=== PATIENT | female | born 2000 | race Caucasian/White ===

== ENCOUNTER 2020-09-07 06:52 | Outpatient (NON) | payer OTHER, SELFPAY ==
[2020-09-08 02:00] LABS: SARS-CoV-2 RNA PCR Positive
== END 2020-09-07 06:53 ==
PROVIDERS: PCP Family Medicine; Visit Provider Family Medicine
DX: U07.1 COVID-19 (principal)
CPT/HCPCS: 87635; C9803; U0003

== ENCOUNTER 2022-06-27 15:09 | Outpatient (CLI) | payer OTHER, SELFPAY ==
[2022-06-27 18:50] LABS: Basophils Percent Auto 0.5 % (0.2-1.2); Eosinophils Absolute Auto 0.1 K/mm3 (0-0.3); Eosinophils Percent Auto 0.8 % (0-4.4); Hematocrit 37.6 % (37.0-47.0); Hemoglobin 12.5 g/dL (12.0-15.0); Immature Granulocyte Absolute 0.02 K/mm3 (0.00-0.031); Immature Granulocyte Percent A 0.3 % (0-0.5); Lymphocytes Absolute Auto 2.81 K/mm3 (0.9-3.2); Lymphocytes Percent Auto 37.8 % (18.3-44.2); Mean Corpuscular HGB Conc 33.2 g/dl (32-36); Mean Corpuscular Hemoglobin 29.6 pg (26-34); Mean Corpuscular Volume 88.9 fl (80-100); Mean Platelet Volume 11.1 fl (7.4-10.4); Monocytes Absolute Auto 0.6 K/mm3 (0.1-0.6); Monocytes Percent Auto 7.8 % (2.6-8.5); Neutrophils Absolute Auto 3.9 K/mm3 (1.3-6.7); Neutrophils Percent Auto 52.8 % (45.5-73.1); Platelet Count Result 251 k/mm3 (150-375); Red Blood Count 4.23 M/mm3 (4.2-5.4); Red Cell Distribution Width 11.8 % (11.5-14.5); White Blood Count 7.4 K/mm3 (4.5-10.0)
[2022-06-27 19:14] LABS: Alanine Aminotransferase 26 U/L (6-35); Albumin Level 4.3 g/dL (3.5-5.1); Alkaline Phosphatase 42 U/L (38-126); Anion Gap 8 mmol/L (8-16); Aspartate Amino Transferase 36 U/L (14-36); Bilirubin,Total 0.8 mg/dL (0.2-1.3); Blood Urea Nitrogen 8 mg/dL (7-17); Calcium 9.4 mg/dL (8.4-10.2); Carbon Dioxide 25 mmol/L (22-30); Chloride 104 mmol/L (98-107); Estimated Glomerular Filt Rate > 60; Glucose 93 mg/dL (65-110); Potassium 4.1 mmol/L (3.4-5.0); Sodium 137 mmol/L (137-145)
[2022-06-27 19:16] LABS: Erythrocyte Sedimentation Rate 11 mm/hr (0-20)
[2022-06-27 20:34] LABS: Vitamin D 25 Hydroxy 60.5 ng/mL
== END 2022-06-27 15:10 | disposition home or self-care (01) ==
LOC: ANHGOSHLAB 15:10
PROVIDERS: PCP Family Medicine; Visit Provider Nurse Practitioner
DX: R53.83 Other fatigue (principal); Z13.6 Encounter for screening for cardiovascular disorders; E55.9 Vitamin D deficiency, unspecified; E53.8 Deficiency of other specified B group vitamins; M25.50 Pain in unspecified joint
CPT/HCPCS: 36415; 80053; 82306; 82607; 84443; 85025; 85652; 86038

== ENCOUNTER 2022-07-06 10:03 | Outpatient (CLI) | payer OTHER, SELFPAY ==
[2022-07-06 21:09] LABS: Rheumatoid Factor < 8.6 IU/ML (<12)
== END 2022-07-06 10:04 | disposition home or self-care (01) ==
LOC: ANHGOSHLAB 10:04
PROVIDERS: PCP Family Medicine; Visit Provider Nurse Practitioner
DX: M25.50 Pain in unspecified joint (principal)
CPT/HCPCS: 36415; 86430

== ENCOUNTER → 2023-08-01 08:32 | Outpatient (CLI) | payer OTHER, SELFPAY ==
--- NOTE | ~2023-08-01 | XR_ITS ---
XR_RIBSBI_CR DATE: 08/01/2023 08:44 INDICATION: Bilateral rib pain TECHNIQUE: 3 views of right ribs 3 views of left ribs COMPARISON: None FINDINGS: No fracture or bone destruction of the left or right ribs. Mild thoracic scoliosis. The lungs are normally inflated and clear of infiltrate or consolidation. No pleural effusion or pulm onary vascular congestion or pneumothorax. Normal heart size. No hilar or mediastinal enlargement is detected. IMPRESSION: Negative bilateral ribs Reviewed, dictated and finalized at [facility]. Reviewed, dictated and finalized at [facility]. IMPRESSION: Negative bilateral ribs
== END ==
PROVIDERS: PCP Nurse Practitioner Family; Visit Provider Nurse Practitioner Family
DX: R07.81 Pleurodynia (principal)
CPT/HCPCS: 71110

== ENCOUNTER 2024-02-20 11:21 | Outpatient (CLI) | payer OTHER, SELFPAY ==
[2024-02-20 20:55] LABS: Basophils Percent Auto 0.6 % (0.2-1.2); Eosinophils Absolute Auto 0.1 K/mm3 (0-0.3); Eosinophils Percent Auto 1.4 % (0-4.4); Hematocrit 38.8 % (37.0-47.0); Hemoglobin 12.8 g/dL (12.0-15.0); Immature Granulocyte Absolute 0.01 K/mm3 (0.00-0.031); Immature Granulocyte Percent A 0.2 % (0-0.5); Lymphocytes Absolute Auto 2.51 K/mm3 (0.9-3.2); Lymphocytes Percent Auto 37.9 % (18.3-44.2); Mean Corpuscular Hemoglobin 29.3 pg (26-34); Mean Corpuscular Volume 88.8 fl (80-100); Mean Platelet Volume 11.5 fl (7.4-10.4); Monocytes Absolute Auto 0.6 K/mm3 (0.1-0.6); Neutrophils Absolute Auto 3.4 K/mm3 (1.3-6.7); Neutrophils Percent Auto 50.9 % (45.5-73.1); Platelet Count Result 220 k/mm3 (150-375); Red Blood Count 4.37 M/mm3 (4.2-5.4); Red Cell Distribution Width 11.7 % (11.5-14.5); White Blood Count 6.6 K/mm3 (4.5-10.0)
[2024-02-20 21:09] LABS: Alanine Aminotransferase 23 U/L (6-35); Albumin Level 4.2 g/dL (3.5-5.1); Alkaline Phosphatase 41 U/L (38-126); Anion Gap 5 mmol/L (4-12); Aspartate Amino Transferase 32 U/L (14-36); Bilirubin,Total 0.8 mg/dL (0.2-1.3); Blood Urea Nitrogen 4 mg/dL (7-17); Calcium 9.4 mg/dL (8.4-10.2); Carbon Dioxide 25 mmol/L (22-30); Chloride 108 mmol/L (98-107); Estimated Glomerular Filt Rate > 60; Glucose 86 mg/dL (65-110); Potassium 4.2 mmol/L (3.4-5.0); Sodium 138 mmol/L (137-145)
[2024-02-20 21:19] LABS: Free T4 Free Thyroxine 1.27 ng/mL (0.78-2.19)
== END 2024-02-20 11:22 | disposition home or self-care (01) ==
LOC: ANHGOSHLAB 11:22
PROVIDERS: PCP Family Medicine; Visit Provider Nurse Practitioner Family
DX: E04.1 Nontoxic single thyroid nodule (principal); R59.9 Enlarged lymph nodes, unspecified; E03.9 Hypothyroidism, unspecified; Z00.00 Encounter for general adult medical examination without abnormal findings; R53.83 Other fatigue; M25.50 Pain in unspecified joint
CPT/HCPCS: 36415; 80053; 84439; 84443; 85025

== ENCOUNTER 2024-02-29 09:54 | Outpatient (CLI) | payer OTHER, SELFPAY | END 2024-02-29 09:55 | disposition home or self-care (01) | LOC: ANHGOSHLAB 09:56 | PROVIDERS: PCP Family Medicine; Visit Provider Nurse Practitioner Family | DX: M25.50 Pain in unspecified joint (principal); R59.9 Enlarged lymph nodes, unspecified; R53.83 Other fatigue | CPT/HCPCS: 36415; 86038 ==

== ENCOUNTER 2024-12-09 08:26 | Emergency (ER) | payer OTHER, SELFPAY ==
[2024-12-09 08:35] VITALS: BP 146/70; PULSE 115; RESP 16; TEMP 36.3; O2SAT 100
--- OUTSIDE RECORDS SUMMARY | 2024-12-09 08:41 | XMS_ITS | Clinical Summary ---
Author Organization [facility] Address [address] [place] [address] Phone Care Team Providers Care Group Leader [employer] Processing Name Role Phone Mahin Okeefe MD Primary Care Provider [phone] Allergies No known active allergies Medications ondansetron (ZOFRAN) 4 MG Tablet Take 1 Tab by mouth every 8 hours as needed for Nausea for up to 10 doses. 10 Tab 06/28/2017 Active Social History Tobacco Use Types Packs/Day Years Used Date Smoking Tobacco: Never Comments No Sex and Gender Information Value Date Recorded Sex Assigned at Not on file Legal Sex Female 10:24 PM CDT Gender Identity Not on file Sexual Orientation Not on file Last Filed Vital Signs Vital Sign Reading Time Taken Comments Blood Pressure 111/49 06/28/2017 3:49 PM CDT Pulse 68 06/28/2017 3:49 PM CDT Temperature 36.7 C (98.1 F) 06/28/2017 10:41 AM CDT Respiratory Rate 18 06/28/2017 10:41 AM CDT Oxygen Saturation 99% 06/28/2017 10:41 AM CDT Inhaled Oxygen Concentration - - Weight 65.8 kg (145 lb) 06/28/2017 10:41 AM CDT Height 170.2 cm (5' 7 ) 06/28/2017 10:41 AM CDT Body Mass Index 22.71 06/28/2017 10:41 AM CDT Plan of Treatment Health Maintenance Due Date Last Done Comments Hepatitis C Virus (HCV) Screening 2000 TdaP Immunization 2000 Human Papillomavirus (HPV) Immunization (1 - 3-dose series) 2015 Hepatitis B Immunization (1 of 3 - 19+ 3-dose series) 2019 Pap Smear 2021 Influenza Immunization (#1) 2024 SARS-COV-2 Immunization (2023-25 season) 2024 Respiratory Syncytial Virus (RSV) Immunization (Adult) (1 - 1-dose 75+ series) 2075 Meningococcal Immunization (ACWY) Aged Out No longer eligible based on patient's age to complete this topic Pneumococcal Immunization Combined Aged Out No longer eligible based on patient's age to complete this topic Rotavirus Immunization Aged Out No lo nger eligible based on patient's age to complete this topic Care Teams Group Leader [employer]icon[employer] Processing Relationship Specialty Start Date End Date Mahin Okeefe MD [address] [place] [address] PCP - General Family Medicine 06/28/17
--- NOTE | 2024-12-09 08:50 | ED_ITS ---
HPI - General Adult General Chief complaint: Upper Respiratory Infection Stated complaint: Fever/Chills/Body Aches Source: patient Mode of arrival: ambulatory Limitations: no limitations History of Present Illness HPI narrative: Patient presents for evaluation of sick symptoms since yesterday. Symptoms include fever, chills, generalized body aches, nausea and vomiting. Denies cough, shortness of breath and diarrhea. No recent sick contacts to her knowledge. She does not smoke. She is also concerned about urinary symptoms that started today. Symptoms include dysuria and urinary frequency. She also has some suprapubic discomfort and low back pain. She is concerned she has a UTI. Related Data Home Medications ?Medication ?Instructions ?Recorded ?Confirmed ?Last Taken ?Type drospirenone 3 mg-ethinyl 0.02 tablet PO DAILY 08/24/19 08/01/23 08/24/19 History estradiol 0.02 mg tablet (Brennenvi (28)) diclofenac sodium 75 mg mg PO PRN 02/20/24 Unknown History tablet,delayed release Allergies Allergy/AdvReac Type Severity Reaction Status Date / Time No Known Allergies Allergy Verified 02/20/24 10:50 Review of Systems Review of Systems: CONSTITUTIONAL:Reports fever and chills EYES: Denies visual changes, redness, or discharge. ENT: Denies rhinorrhea, congestion, sore throat, or otalgia. CARDIOVASCULAR: Denies chest pain, palpitations, or edema. RESPIRATORY: Denies cough or dyspnea. GASTROINTESTINAL:Reports nausea and vomiting. Denies abdominal pain and diarrhea. GENITOURINARY: Reports dysuria and urinary frequency.. BACK: Reports bilateral low back pain SKIN: Denies rash or itching. MUSCULOSKELETAL: Reports generalized body aches NEUROLOGIC: Denies headache, numbness, dizziness, or weakness. PSYCHIATRIC: Denies anxiety or depression. 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 GERD (gastroesophageal reflux disease) Surgical History Surgical History No pertinent past surgical history Family History Family History Grandparent Heart attack Other Family history of Parkinson's disease Family history of malignant neoplasm of male breast Social History Social History Smoking status: Never smoker Alcohol intake: current Alcohol use details: Socially Substance use: never Substance use type: does not use Lack of Transportation: No Lack of Food: Never True Current Housing: I Have Housing Concerned About Future Housing: No Difficulty Paying Gas/Electric Bills: No Difficulty Paying for Meds: No Currently Unemployed: No Education: Associate Degree Difficulty w/ Childcare or Family Care: No Living arrangements: with family Occupation/Education: occupation Gender identity (if verbalized by the patient): Female Agree to blood products: Yes Exam Narrative: GENERAL: Well-appearing, well-nourished, and in no acute distress. HEAD: Normocephalic, atraumatic. EYES: PERRLA and EOMI. ENT: Nares clear, no rhinorrhea or epistaxis. Mucous membranes moist. Oropharynx without tonsillar hypertrophy exudate or other lesions. Bilateral TMs pearly fletcher nonbulging NECK: Supple. No adenopathy or masses. No carotid bruits or JVD CHEST: Clear to auscultation. No respiratory distress. No wheezes rales or rhonchi HEART: Regular rate and rhythm. No murmur heard. Normal peripheral pulses. ABDOMEN: Soft, nontender, nondistended, normal active bowel sounds. EXTREMITIES: Normal range of motion. No edema. SKIN: Warm, dry, no rash. NEURO: No focal deficits. Alert and oriented x3. PSYCH: Normal mood and affect. Course Course Emergency Course: This is a 24 year old female who initially presented for sick symptoms. COVID and flu negative. Exam is consistent with acute viral syndrome. She then reported urinary symptoms. Urine + leukocytes. Will send urine culture/ Start Bactrim. Increase fluids. Follow up with primary provider. Go to the ER for worsening symptoms. Pt in agreement with plan of care. Level of Care: Express Care Visit Vital Signs Vital signs: Vital Signs Temperature 36.3 C L 12/09/24 08:35 Pulse Rate 115 H 12/09/24 08:35 Respiratory Rate 16 12/09/24 08:35 Blood Pressure 146/70 H 12/09/24 08:35 Pulse Oximetry 100 12/09/24 08:35 Oxygen Delivery Room Air 12/09/24 08:35 Temperature 36.3 C L 12/09/24 08:35 Pulse Rate 115 H 12/09/24 08:35 Respiratory Rate 16 12/09/24 08:35 Blood Pressure 146/70 H 12/09/24 08:35 Pulse Oximetry 100 12/09/24 08:35 Oxygen Delivery Room Air 12/09/24 08:35 Medical Decision Making Vital Signs Vital Signs: Vital Signs Temperature 36.3 C L 12/09/24 08:35 Pulse Rate 115 H 12/09/24 08:35 Respiratory Rate 16 12/09/24 08:35 Blood Pressure 146/70 H 12/09/24 08:35 Pulse Oximetry 100 12/09/24 08:35 Oxygen Delivery Room Air 12/09/24 08:35 Temperature 36.3 C L 12/09/24 08:35 Pulse Rate 115 H 12/09/24 08:35 Respiratory Rate 16 12/09/24 08:35 Blood Pressure 146/70 H 12/09/24 08:35 Pulse Oximetry 12/09/24 08:35 Oxygen Delivery Room Air 12/09/24 08:35 Lab Data Labs: Lab Results 12/09/24 12/09/24 Range/Units 08:52 09:18 POC Urine Color Tea colored POC Urine Clarity Clots POC Urine pH 6.0 POC Ur Specif Braggs 1.030 POC Urine Protein 2+ (Negative) POC Ur Glucose (UA) Negative (Negative) POC Urine Ketones Trace (Negative) POC Urine Blood Negative (Negative) POC Urine Nitrite Negative (Negative) POC Urine Bilirubin 1+ (Negative) POC Urine Urobilinogen 0.2 POC U Leukocyte Esteras Trace (Negative) POC Influenza A Ag Negative (Negative) POC Influenza B Ag Negative (Negative) POC SARS CoV-2 Ag Negative (Negative) Discharge Plan Discharge Clinical Impression: Acute viral syndrome, UTI (urinary tract infection) Patient Disposition: Home, Self-Care Condition: Stable Instructions: Antibiotic Form, Urinary Tract Infection in Women (DC), Viral Sy ndrome (ED) Patient Language: Spanish Prescriptions: New sulfamethoxazole-trimethoprim [Bactrim DS] 800-160 mg tablet 1 tablet PO Q12H Qty: 14 0RF No Action diclofenac sodium 75 mg tablet,delayed release (DR/EC) PO PRN drospirenone-ethinyl estradiol [Gianvi (28)] 3-0.02 mg tablet 0.02 tablet PO DAILY Follow-up/Referrals: Homero Dorman MD [Primary Care Provider] - Time of Disposition: 09:23
[2024-12-09 09:00] LABS: EDCOVIDSCREEN Negative (Negative); EDINFLUASCREEN Negative (Negative); EDINFLUBSCREEN Negative (Negative)
[2024-12-09 09:22] LABS: EDUAAPPEAR Clots; EDUABILI 1+ (Negative); EDUABLOOD Negative (Negative); EDUACOLOR1 Tea Colored; EDUAGLUCOSE Negative (Negative); EDUAKETONE Trace (Negative); EDUALEUKO Trace (Negative); EDUANITRATE Negative (Negative); EDUAPROTEIN 2+ (Negative); EDUAUROBILI 0.2
== END 2024-12-09 09:28 | disposition home or self-care (01) ==
PROVIDERS: Emergency Provider Nurse Practitioner; PCP Family Medicine
DX: B34.9 Viral infection, unspecified (principal); N39.0 Urinary tract infection, site not specified; Z20.822 Contact with and (suspected) exposure to COVID-19; K21.9 Gastro-esophageal reflux disease without esophagitis; D89.9 Disorder involving the immune mechanism, unspecified
CPT/HCPCS: 81003; 87086; 87426; 87804; 99213; G0463

== ENCOUNTER 2025-07-31 10:10 | Outpatient (CLI) | payer OTHER, SELFPAY ==
--- OUTSIDE RECORDS SUMMARY | 2025-07-31 10:44 | XMS_ITS | Clinical Summary ---
Author Organization [facility] Address [address] [place] [address] Phone Care Team Providers Care Calcine Furnace Tender Name Role Phone Mahin Okeefe MD Primary Care Provider Allergies No known active allergies Medications ondansetron [...] 10:41 AM CDT Height 170.2 cm (5' 7) 06/28/2017 10:41 AM CDT Body Mass Index 22.71 06/28/2017 10:41 AM CDT Plan of Treatment Health Maintenance Due Date Last Done Comments Hepatitis C Virus (HCV) Screening 2000 TdaP Immunization 2000 Human Papillomavirus (HPV) Immunization (1 - 3-dose series) 2015 Hepatitis B Immunization (1 of 3 - 19+ 3-dose series) 2019 Influenza Immunization (#1) 2025 SARS-COV-2 Immunization (2024- season) 2025 Respiratory Syncytial Virus (RSV) Immunization (Adult) (1 - 1-dose 75+ series) 2075 Meningococcal Immunization (ACWY) Aged Out No longer eligible based on patient's age to complete this topic Pneumococcal Immunization Combined Aged Out No longer eligible based on patient's age to complete this topic Rotavirus Immunization Aged Out No lo nger eligible based on patient's age to complete this topic Care Teams Calcine Furnace Tender Relationship Specialty Start Date End Date Mahin Okeefe MD [address] [place] [address] PCP - General Family Medicine 06/28/17
[2025-07-31 12:49] LABS: Hematocrit 39.9 % (37.0-47.0); Hemoglobin 13.0 g/dL (12.0-15.0); Mean Corpuscular HGB Conc 32.6 g/dl (32-36); Mean Corpuscular Hemoglobin 29.1 pg (26-34); Mean Corpuscular Volume 89.5 fl (80-100); Platelet Count Result 273 k/mm3 (150-375); Red Blood Count 4.46 M/mm3 (4.2-5.4); White Blood Count 8.9 K/mm3 (4.5-10.0)
[2025-07-31 13:03] LABS: Alanine Aminotransferase 19 U/L (6-35); Albumin Level 4.2 g/dL (3.5-5.1); Alkaline Phosphatase 49 U/L (38-126); Anion Gap 5 mmol/L (4-12); Aspartate Amino Transferase 47 U/L (14-36); Bilirubin,Total 0.9 mg/dL (0.2-1.3); Blood Urea Nitrogen 9 mg/dL (7-17); Calcium 9.3 mg/dL (8.4-10.2); Carbon Dioxide 26 mmol/L (22-30); Chloride 105 mmol/L (98-107); Estimated Glomerular Filt Rate > 60; Glucose 90 mg/dL (65-110); Potassium 4.7 mmol/L (3.4-5.0); Sodium 136 mmol/L (137-145); Total Protein 7.6 g/dL (6.3-8.2)
[2025-07-31 13:22] LABS: Free T4 Free Thyroxine 1.13 ng/dL (0.78-2.19)
[2025-07-31 14:10] LABS: Thyroid Stimulating Hormone 2.160 uIU/mL (0.465-4.680)
[2025-07-31 14:42] LABS: Vitamin B12 289.0 pg/mL (239-931)
[2025-07-31 14:59] LABS: Hemoglobin A1C 4.9 % (<5.7)
== END 2025-07-31 10:11 | disposition home or self-care (01) ==
LOC: ANHGOSHLAB 10:11
PROVIDERS: PCP Family Medicine
DX: E13.21 Other specified diabetes mellitus with diabetic nephropathy (principal)
CPT/HCPCS: 36415; 80053; 82306; 82607; 83036; 84439; 84443; 85027